=== PATIENT | female | born 1965 | race Caucasian/White ===

== ENCOUNTER 2022-04-27 09:54 | Day surgery (SDC) | payer BC ==
[~2022-04-27] VITALS: Ht 157.5 cm; Wt 55.0 kg
[2022-04-27] VITALS (12 sets, daily range): BP systolic 98–134; BP diastolic 63–78
[2022-04-27] MEDS ORDERED: normal saline 1000ml 1,000 ML IV SCH (10:00)
[2022-04-27] MEDS ORDERED: famotidine 20mg tablet PO ONE (10:00)
[2022-04-27] MEDS ORDERED: PRE5T PO (10:56)
[2022-04-27] MEDS ORDERED: SIRO0.5T3 PO (10:56)
[2022-04-27] MEDS ORDERED: AZIT-83 PO (10:56)
[2022-04-27] MEDS ORDERED: APIX5TAB3 PO (10:56)
[2022-04-27] MEDS ORDERED: MULT-1085 PO (10:56)
[2022-04-27] MEDS ORDERED: SIMV-342 PO (10:56)
[2022-04-27] MEDS ORDERED: ANTIBIOTIC PO (10:56)
[2022-04-27 11:33] LABS: BASOPHILS # (AUTO) 0.2 X10'3 (0-0.2); BASOPHILS % (AUTO) 1.5 % (0-1); EOSINOPHILS # (AUTO) 0.2 X10'3 (0-0.9); EOSINOPHILS % (AUTO) 1.3 % (0-6); HEMATOCRIT 29.6 % (35.0-45.0); HEMOGLOBIN 9.3 g/dl (12.0-16.0); LYMPHOCYTES # (AUTO) 1.1 X10'3 (1.1-4.8); LYMPHOCYTES % (AUTO) 8.3 % (21-51); MEAN CORPUSCULAR HEMOGLOBIN 29.5 PG (27.0-31.0); MEAN CORPUSCULAR HGB CONC 31.5 g/dL (33.0-36.5); MEAN CORPUSCULAR VOLUME 93.7 FL (78-98); MEAN PLATELET VOLUME 7.3 FL (7.4-10.4); MONOCYTES # (AUTO) 0.6 X10'3 (0-0.9); MONOCYTES % (AUTO) 4.5 % (2-12); NEUTROPHILS # (AUTO) 11.7 X10'3 (1.8-7.7); NEUTROPHILS % (AUTO) 84.4 % (42-75); PLATELET COUNT 313 X10'3 (140-440); RED BLOOD COUNT 3.16 X10'6 (4.20-5.60); RED CELL DISTRIBUTION WIDTH 18.3 % (11.5-14.5); WHITE BLOOD COUNT 13.9 X10'3 (4.5-11.0)
[2022-04-27] MEDS ORDERED: ondansetron/PF 4mg/2ml inj IV PRN (12:40)
[2022-04-27] MEDS ORDERED: morphine 2 MG/ML inj. syringe IV PRN (12:40)
[2022-04-27] MEDS ORDERED: fentaNYL/PF 50MCG/1 ML 2ML syringe IV PRN (12:40)
[2022-04-27] MEDS ORDERED: morphine 4 MG/ML inj SYRINge IV PRN (12:40)
[2022-04-27] MEDS ORDERED: hydrALAZINE 20mg/ml inj. IV PRN (12:40)
[2022-04-27] MEDS ORDERED: labetalol 20mg/4ml (5mg/ml) syringe IV PRN (12:40)
[2022-04-27] MEDS ORDERED: ringers solution, lacted 1,000 ML IV SCH (12:40)
[2022-04-27] MEDS ORDERED: BUPIVAcaine 0.5% inj/PF 30 ML ONE (13:12)
[2022-04-27] MEDS ORDERED: desflurane 240ml liquid inh. IH ONE (13:26)
[2022-04-27] MEDS ORDERED: LIDOcaine 2% (20mg/ml) 5ml vial ONE (13:26)
[2022-04-27] MEDS ORDERED: dexamethasone sod phosphate 10mg/ml inj ONE (13:26)
[2022-04-27] MEDS ORDERED: glycopyrrolate 0.2mg/ml inj ONE (13:26)
[2022-04-27] MEDS ORDERED: neostigmine methylsulfate 1 MG/ML 10ml vial ONE (13:26)
[2022-04-27] MEDS ORDERED: FENTANYL CITRATE/PF 50 MCG/1 ML VIAL ONE ×2 (13:30→14:15)
[2022-04-27] MEDS ORDERED: rocuronium 10mg/ml inj IV ONE (13:31)
[2022-04-27] MEDS ORDERED: midazolam 1 mg/ML 2ml injection ONE (13:31)
[2022-04-27] MEDS ORDERED: propofol inj 20 ML IV ONE (13:31)
[2022-04-27] MEDS ORDERED: ondansetron/PF 4mg/2ml inj ONE (13:45)
[2022-04-27] MEDS ORDERED: albumin (Human) 5% 250ml 250 ML IV ONE (14:05)
[2022-04-27] MEDS ORDERED: BUPIVAcaine 0.25% w/Epi /PF 30ml vial IJ ONE (14:06)
[2022-04-27] MEDS ORDERED: heparin sodium, porcine/PF 100unit/ml 5ML syringe ONE (14:14)
[2022-04-27] MEDS ORDERED: bacitracin 15gm ointment TP ONE (14:20)
--- NOTE | 2022-04-27 14:35 | NUR ---
Received from OR via BED, accompanied by Anesthesiologist and report given by Anesthesiologist. PATIENT WAKING UP, C/O PAIN SEE EMAR, V/S WNL, SCD ON, 20G TO LUE, ABDOMEN SURGICAL SITE CLEAN W/ NO S/S OF COMPLICATIONS
[2022-04-27] MEDS: fentaNYL/PF 50MCG/1 ML 2ML syringe IV PRN ×2 (14:37→14:39)
[2022-04-27] MEDS ORDERED: oxyCODONE/APAP 5-325mg tablet PO ONE (14:45)
--- NOTE | 2022-04-27 16:05 | NUR ---
PATIENT A&OX4, DENIES PAIN, V/S WNL, SCD OFF, 20G TO WAYNEE D/C, ABDOMEN SURGICAL SITE CLEAN W/ NO S/S OF COMPLICATIONS. I HAVE REVIEWED D/C INSTRUCTIONS WITH PATIENT and they have verbalized understanding patient d/c home with all belongings and family gave transport home.
== END 2022-04-27 16:05 | disposition home or self-care (01) ==
LOC: PAS 09:54
PROVIDERS: ATTEND Surgery
DX: T85.621A Displacement of intraperitoneal dialysis catheter, initial encounter (principal); D64.9 Anemia, unspecified; I12.0 Hypertensive chronic kidney disease with stage 5 chronic kidney disease or end stage renal disease; N18.6 End stage renal disease; G47.30 Sleep apnea, unspecified; Z88.2 Allergy status to sulfonamides; Z88.1 Allergy status to other antibiotic agents; Z88.8 Allergy status to other drugs, medicaments and biological substances; Z87.01 Personal history of pneumonia (recurrent); Z94.2 Lung transplant status; Z79.01 Long term (current) use of anticoagulants; Z79.899 Other long term (current) drug therapy; Z98.890 Other specified postprocedural states; Z83.3 Family history of diabetes mellitus; Y83.8 Other surgical procedures as the cause of abnormal reaction of the patient, or of later complication, without mention of misadventure at the time of the procedure; Y92.89 Other specified places as the place of occurrence of the external cause
CPT/HCPCS: 36415; 49325; 82948; 85025; 93005; J1100; J1642; J2250; J2405; J2704; J2710; J3010; J3490; J7030; J7040; P9045; S0020; Z7506; Z7508; Z7512; A4215; A4618; A6250; J7120